=== PATIENT | male | born 1980 | race Caucasian/White ===

== ENCOUNTER 2023-05-07 22:13 | Emergency (ER) | payer OTHER ==
[2023-05-07 22:21] VITALS: RESP 18; TEMP 98.3; BMI 33.0
[2023-05-08] MEDS ORDERED: DIPHTH,PERTUSS(ACELL),TET 0.5 ML DISP.SYRIN IM ONE ×2 (00:18→00:20)
[2023-05-08 00:50] VITALS: BP 113/69; PULSE 110
== END 2023-05-08 00:56 | disposition home or self-care (01) ==
LOC: JER 22:13
PROC: 0HQFXZZ Repair Right Hand Skin, External Approach (ICD-10-PCS; principal; 2023-05-07)
PROC: 3E0234Z Introduction of Serum, Toxoid and Vaccine into Muscle, Percutaneous Approach (ICD-10-PCS; 2023-05-08)
DX: S61.212A Laceration without foreign body of right middle finger without damage to nail, initial encounter (principal); W26.8XXA Contact with other sharp object(s), not elsewhere classified, initial encounter
CPT/HCPCS: 90715; 99282-25

== ENCOUNTER 2023-05-17 08:19 | Emergency (ER) | payer OTHER ==
[2023-05-17 08:43] VITALS: BP 133/68; PULSE 71; RESP 18; TEMP 98.7; BMI 33.0
== END 2023-05-17 11:07 | disposition home or self-care (01) ==
LOC: JER 08:19
DX: Z48.02 Encounter for removal of sutures (principal)
CPT/HCPCS: 99281-25